=== PATIENT | male | born 1995 | race Caucasian/White ===

== ENCOUNTER 2020-06-05 14:28 | Emergency (ER) | payer OTHER, SELFPAY ==
--- NOTE | ~2020-06-05 | XR_ITS ---
EXAMINATION: XR tibia fibula LT 2V DATE: 06/05/2020 14:49 INDICATION: Anterior and lateral pain at the mid left lower leg post blunt trauma TECHNIQUE: Anteroposterior and lateral views of the left tibia and fibula were obtained. COMPARISON: None. FINDINGS: Alignment is normal. No fracture. Joint spaces are normal. Soft tissue swelling with subcutaneous clare ma along the anterior and lateral aspect of the mid left calf. No left knee or ankle joint effusion. IMPRESSION: 1. No osseous abnormality. Reviewed, dictated and finalized at location A. IMPRESSION: 1. No osseous abnormality.
[2020-06-05 14:36] VITALS: BP 145/72; PULSE 100; RESP 18; TEMP 38.1; O2SAT 100
--- NOTE | 2020-06-05 14:43 | ED.LOWEXIN ---
HPI - Extremity Injury (Lower) General Chief Complaint: Extremity Injury, Lower Stated Complaint: left leg injury Time Seen by Provider: 06/05/20 14:43 Source: patient and RN notes reviewed Mode of arrival: ambulatory Limitations: no limitations History of Present Illness HPI Narrative: 24-year-old male presents to the [facility] with complaints of left anterior lower leg pain after getting hit in the leg with a lift gate from a scissor lift just prior to arrival. Swelling, bruising and abrasion noted. Is walking favoring the left leg. No bleeding noted. States his last tetanus was a couple years ago he believes 2019 when he cut his finger. Related Data Home Medications Medication Instructions Recorded Confirmed No Home Medications 06/05/20 06/05/20 Allergies Allergy/AdvReac Type Severity Reaction Status Date / Time METOCLOPRAMIDE HCL Allergy Unknown DYSTONIC Uncoded 06/05/20 14:42 POSTURING PROCHLORPERAZINE EDISYLATE Allergy Unknown DYSTONIC Uncoded 06/05/20 14:42 POSTURING PROCHLORPERAZINE MALEATE Allergy Unknown DYSTONIC Uncoded 06/05/20 14:42 POSTURING Review of Systems Review of Systems: Narrative: CONSTITUTIONAL: Denies fever, chills, or sweats. CARDIOVASCULAR: Denies chest pain, palpitations, or edema. RESPIRATORY: Denies cough or dyspnea. SKIN: Bruising, swelling and abrasion left anterior lower leg. MUSCULOSKELETAL: Denies back pain, joint pain, or myalgia. NEUROLOGIC: Denies headache, numbness, or weakness. PSYCHIATRIC: Denies anxiety or depression. All other systems reviewed are negative, except as documented in HPI. PMFSH Surgical History Surgical History (Updated 06/07/20 @ 09:36 by Lola Montejo) H/O brain surgery Social History Social History Gender identity (if verbalized by the patient): Male Exam Narrative: Exam Narrative: GENERAL: This is a well-nourished, well-developed patient, in no apparent distress. HEAD: normocephalic, atraumatic. CARDIOVASCULAR: Regular rate and rhythm without murmurs, gallops, or rubs. RESPIRATORY: Clear to auscultation. Breath sounds equal bilaterally. No wheezes, rales, or rhonchi. GASTROINTESTINAL: Abdomen soft, non-tender, nondistended. Bowel sounds are active. No hepato-splenomegaly, or palpable masses. No guarding. SKIN: warm, Dry. Abrasion measuring 13 x 4 cm noted. Swelling and bruising in the same area noted, tender to palpation. Full range of motion of ankle. Sensation intact distal to injury. No edema noted. Positive pedal pulse. NEURO: awake, alert, and oriented to person, place and time. There were no obvious focal neurologic abnormalities. EXTREMITIES: No joint tenderness, effusion, or edema noted. No calf tenderness. Negative Homans sign bilaterally. BACK: Nontender without deformity. Extrem: Upper/lower leg/hip images: 1. Patient, swelling, abrasion Course Vital Signs Vital signs: Vital Signs Temperature 100.6 F H 06/05/20 14:36 Pulse Rate 100 06/05/20 14:36 Respiratory Rate 18 06/05/20 14:36 Blood Pressure 145/72 H 06/05/20 14:36 Pulse Oximetry 100 06/05/20 14:36 Temperature 100.6 F H 06/05/20 14:36 Pulse Rate 100 06/05/20 14:36 Respiratory Rate 18 06/05/20 14:36 Blood Pressure 145/72 H 06/05/20 14:36 Pulse Oximetry 100 06/05/20 14:36 Reviewed MDM - Extremity Injury (Lower) MDM Narrative Medical decision making narrative: Discharge instructions reviewed with patient, as well as provided in writing per nursing staff. The instructions also include specific and strict return/GO TO THE ER as well as f/u information. All questions have been answered, and the patient deny any further questions with discharge and discharge plan. Differential Diagnosis Differential diagnosis: Likely other (Fracture tib-fib, leg contusion, leg abrasion,) Imaging Data Radiologist's impression: Impressions Tibia/Fibula X-Ray 06/05/20 14:55 IMPRE
--- NOTE | 2020-06-05 14:53 | PC.NURSE ---
PT DECLINED ICE FOR COMFORT AND WHEELCHAIR TO RADIOLOGY
== END 2020-06-05 15:11 | disposition home or self-care (01) ==
PROVIDERS: Emergency Provider Nurse Practitioner; PCP Internal Medicine
DX: S80.12XA Contusion of left lower leg, initial encounter (principal); W20.8XXA Other cause of strike by thrown, projected or falling object, initial encounter
CPT/HCPCS: 73590; 99213; G0463

== ENCOUNTER 2020-06-25 18:55 | Emergency (ER) | payer OTHER, SELFPAY ==
--- NOTE | 2020-06-25 19:00 | ED.LOWEXIN ---
HPI - Extremity Injury (Lower) General Chief Complaint: Extremity Injury, Lower Stated Complaint: can't feel lump on left leg Time Seen by Provider: 06/25/20 19:00 Source: patient and RN notes reviewed History of Present Illness HPI Narrative: Patient is a 24-year-old male who presents the urgent care with complaints of a lump to the left lower leg. Patient was seen on 05 June after an incident at work, which occurred on June 04 at [employer]. Patient states that there is a defect in their metal gate and it came back swinging on his left lower leg. Patient states that it initially did cause him pain however he very rarely has any pain and only when he is on his feet for long periods of time. Patient states that his workplace was making him come get it checked out because he told him the lump was a little numb . Patient states that he is aware that the previous provider did tell him it would take some time to heal and the x-rays were normal . Patient states that he does use ibuprofen as needed but very rarely. Currently denies of any acute complaints or pain. States that he only came because his boss made him . Denies of any new injury. Patient aware of the plan of care. Some parts of this dictation were generated by voice recognition software and may contain typographical and/or grammatical inaccuracies. Related Data Home Medications Medication Instructions Recorded Confirmed budesonide-formoterol [Symbicort] 2 puff INHALATION Q12H 06/25/20 06/25/20 Allergies Allergy/AdvReac Type Severity Reaction Status Date / Time METOCLOPRAMIDE HCL Allergy Unknown DYSTONIC Uncoded 06/25/20 19:08 POSTURING PROCHLORPERAZINE EDISYLATE Allergy Unknown DYSTONIC Uncoded 06/25/20 19:08 POSTURING PROCHLORPERAZINE MALEATE Allergy Unknown DYSTONIC Uncoded 06/25/20 19:08 POSTURING Review of Systems Review of Systems: Narrative: CONSTITUTIONAL: Denies fever, chills, or sweats. EYES: Denies visual changes, redness, or discharge. ENT: Denies rhinorrhea, congestion, sore throat, or otalgia. CARDIOVASCULAR: Denies chest pain, palpitations, or edema. RESPIRATORY: Denies cough or dyspnea. GASTROINTESTINAL: Denies abdominal pain, nausea, vomiting, or diarrhea. GENITOURINARY: Denies dysuria or hematuria. SKIN: Denies rash or itching. MUSCULOSKELETAL: Reports of a contusion to the left lower leg NEUROLOGIC: Denies headache, numbness, or weakness. All other systems reviewed are negative, except as documented in HPI. [facility] Surgical History Surgical History (Updated 06/07/20 @ 09:36 by Lola Montejo) H/O brain surgery Social History Social History Gender identity (if verbalized by the patient): Male Comments At the time of my signature, I reviewed and agree with the nursing past medical, surgical, social, and family history. There is no relevant family history pertinent to the patient complaint. Exam Narrative: Exam Narrative: GENERAL: This is a well-nourished, well-developed patient, in no apparent distress. HEAD: normocephalic, atraumatic. EYES: PERRL. Sclera clear/white. Vision is grossly intact. EARS: External ears normal NOSE: External nose normal with no obvious nasal discharge, nares without redness, no rhinorrhea. THROAT: Mucous membranes moist NECK: Neck supple CARDIOVASCULAR: Regular rate and rhythm without murmurs, gallops, or rubs. RESPIRATORY: Clear to auscultation. Breath sounds equal bilaterally. No wheezes, rales, or rhonchi. SKIN: warm, intact with no suspicious lesions or rash, good texture and turgor. NEURO: awake, alert, and oriented to person, place and time. There were no obvious focal neurologic abnormalities. EXTREMITIES: 4 x 4 centimeter nonerythemic nontender hematoma noted to the left lower anterior leg. Negative Homans' sign. Positive strong left pedal pulse with capillary refill less than 2 seconds. Range of motion to left lower extremity within
[2020-06-25 19:02] VITALS: BP 148/65; PULSE 88; RESP 16; TEMP 36.9; O2SAT 99
== END 2020-06-25 19:14 | disposition home or self-care (01) ==
PROVIDERS: Emergency Provider Nurse Practitioner Family
DX: S80.12XD Contusion of left lower leg, subsequent encounter (principal); W22.8XXD Striking against or struck by other objects, subsequent encounter; J45.909 Unspecified asthma, uncomplicated
CPT/HCPCS: 99211; G0463

== ENCOUNTER 2020-10-23 17:15 | Emergency (ER) | payer OTHER, SELFPAY ==
[2020-10-23 17:21] VITALS: BP 142/70; PULSE 101; RESP 16; TEMP 37.4; O2SAT 99
--- NOTE | 2020-10-23 17:22 | ED.NAVMDI ---
HPI - Nausea/Vomiting/Diarrhea General Chief complaint: Nausea/Vomiting/Diarrhea Stated complaint: Headache, vomitting, body aches Time Seen by Provider: 10/23/20 17:22 Source: patient and RN notes reviewed History of Present Illness HPI Narrative: Patient is a 25-year-old male who presents the urgent care with complaints of vomiting, headache and body aches. Patient states he woke up with the symptoms this morning at 4 AM and they have since subsided. Patient states he took Tylenol for the headache and states that he also had a low-grade fever of 100.2 Fahrenheit. Patient denies of any known contact with Covid and states that he has been vaccinated. Patient states his rapid Covid test at work this morning was negative and he is following up at [facility] for a PCR on Monday. Patient currently denies of any nausea, diarrhea or abdominal pain. No other acute complaints. No acute distress noted. Patient aware of the plan of care. Some parts of this dictation were generated by voice recognition software and may contain typographical and/or grammatical inaccuracies. Related Data Home Medications Medication Instructions Recorded Confirmed budesonide-formoterol [Symbicort] 2 puff INHALATION Q12H 06/25/20 06/25/20 Allergies Allergy/AdvReac Type Severity Reaction Status Date / Time METOCLOPRAMIDE HCL Allergy Unknown DYSTONIC Uncoded 06/25/20 19:08 POSTURING PROCHLORPERAZINE EDISYLATE Allergy Unknown DYSTONIC Uncoded 06/25/20 19:08 POSTURING PROCHLORPERAZINE MALEATE Allergy Unknown DYSTONIC Uncoded 06/25/20 19:08 POSTURING Review of Systems Review of Systems: CONSTITUTIONAL: Reports of resolved fever EYES: Denies visual changes, redness, or discharge. ENT: Denies rhinorrhea, congestion, sore throat, or otalgia. CARDIOVASCULAR: Denies chest pain, palpitations, or edema. RESPIRATORY: Denies cough or dyspnea. GASTROINTESTINAL: Reports of resolved vomiting without nausea or abdominal pain GENITOURINARY: Denies dysuria or hematuria. SKIN: Denies rash or itching. MUSCULOSKELETAL: Denies back pain, joint pain, or myalgia. NEUROLOGIC: Reports a resolved headache All other systems reviewed are negative, except as documented in HPI. [facility] Surgical History Surgical History (Updated 06/07/20 @ 09:36 by Lola Montejo) H/O brain surgery Social History Social History Gender identity (if verbalized by the patient): Male Comments At the time of my signature, I reviewed and agree with the nursing past medical, surgical, social, and family history. There is no relevant family history pertinent to the patient complaint. Exam Narrative: GENERAL: This is a well-nourished, well-developed patient, in no apparent distress. HEAD: normocephalic, atraumatic. EYES: PERRL. Sclera clear/white. Vision is grossly intact. EARS: External ears normal, auditory canals clear and without drainage, TMs normal without perforation. Hearing grossly intact. NOSE: External nose normal with no obvious nasal discharge, nares without redness, no rhinorrhea. THROAT: Mucous membranes moist, mild erythema noted posterior pharynx with moderate postnasal drainage. NECK: Neck supple CARDIOVASCULAR: Regular rate and rhythm without murmurs, gallops, or rubs. RESPIRATORY: Clear to auscultation. Breath sounds equal bilaterally. No wheezes, rales, or rhonchi. GASTROINTESTINAL: Abdomen soft, non-tender, nondistended. Bowel sounds are active. No guarding. SKIN: warm, intact with no suspicious lesions or rash, good texture and turgor. NEURO: awake, alert, and oriented to person, place and time. There were no obvious focal neurologic abnormalities. EXTREMITIES: No clubbing, cyanosis, or edema. Course Vital Signs Vital signs: Vital Signs Temperature 99.3 F 10/23/20 17:21 Pulse Rate 101 H 10/23/20 17:21 Respiratory Rate 16 10/23/20 17:21 Blood Pressure 142/70 H 10/23/20 17:21 Pulse Oximetry 99 09
== END 2020-10-23 17:49 | disposition home or self-care (01) ==
PROVIDERS: Emergency Provider Nurse Practitioner Family; PCP Internal Medicine
DX: R11.10 Vomiting, unspecified (principal); R51.9 Headache, unspecified; J45.909 Unspecified asthma, uncomplicated
CPT/HCPCS: 87081; 87880; 99213; G0463

== ENCOUNTER 2020-12-15 12:04 | Emergency (ER) | payer OTHER, SELFPAY ==
[2020-12-15 12:10] VITALS: BP 140/70; PULSE 92; RESP 20; TEMP 36.9; O2SAT 100
--- NOTE | 2020-12-15 12:45 | ED.SKABFB ---
HPI - Skin/Abscess/Foreign Bdy General Chief complaint: Skin/Abscess/Foreign Body Stated complaint: Rash Source: patient and RN notes reviewed Mode of arrival: ambulatory Limitations: no limitations History of Present Illness HPI narrative: Mitchel is a 25-year-old male patient who ambulated into the [facility]. Zahra states he has a 1 day history of reddened erythemic rash on his neck and upper chest. Patient states he has no new exposures to any new soap, shaving cream, or anything else. Patient states the rash is itchy . Patient denies any other symptoms. Patient denies any treatment prior to arrival Related Data Home Medications Medication Instructions Recorded Confirmed budesonide-formoterol [Symbicort] 2 puff INHALATION Q12H 06/25/20 12/15/20 Allergies Allergy/AdvReac Type Severity Reaction Status Date / Time METOCLOPRAMIDE HCL Allergy Unknown DYSTONIC Uncoded 12/15/20 12:27 POSTURING PROCHLORPERAZINE EDISYLATE Allergy Unknown DYSTONIC Uncoded 12/15/20 12:27 POSTURING PROCHLORPERAZINE MALEATE Allergy Unknown DYSTONIC Uncoded 12/15/20 12:27 POSTURING Review of Systems Review of Systems: CONSTITUTIONAL: Denies body aches, fever, chills, or sweats. EYES: Denies visual changes, redness, or discharge. ENT: Denies rhinorrhea, congestion, sore throat, or otalgia. CARDIOVASCULAR: Denies chest pain, palpitations, or edema. RESPIRATORY: Denies cough or dyspnea. GASTROINTESTINAL: Denies abdominal pain, nausea, vomiting, or diarrhea. GENITOURINARY: Denies dysuria or hematuria. SKIN: reddened itchy rash to neck and upper chest. MUSCULOSKELETAL: Denies back pain, joint pain, or myalgia. NEUROLOGIC: Denies headache, numbness, tingling, or weakness. PSYCH: Denies depression or anxiety. All systems reviewed & are unremarkable except as noted in HPI and below PMFSH Surgical History Surgical History H/O brain surgery Social History Social History Gender identity (if verbalized by the patient): Male Comments At time of signature, I have reviewed and agree with nursing past medical, surgical, social and family history unless otherwise noted. Please see nursing chart for further information. There is no relevant family history pertinent to the presenting complaint Exam Narrative: GENERAL: Well-appearing, well-nourished, and in no acute distress. HEAD: Normocephalic, atraumatic. EYES: EOMI. No redness or drainage. Conjunctivae normal. ENT: Mucous membranes pink and moist. Nares clear. No rhinorrhea. NECK: Normal AROM. Supple. MUSCULOSKELETAL: No bony tenderness. EXTREMITIES: Normal range of motion. No edema. SKIN: Warm, dry, Capillary refill normal. Normal skin turgor , erythemic macular rash bilateral anterior neck and middle upper chest. NEURO: No focal deficits. Alert and oriented x3. Gait steady. PSYCH: Normal affect. No signs of depression or anxiety. Course Vital Signs Vital signs: Vital Signs Temperature 36.9 C 12/15/20 12:10 Pulse Rate 92 12/15/20 12:10 Respiratory Rate 20 12/15/20 12:10 Blood Pressure 140/70 12/15/20 12:10 Pulse Oximetry 100 12/15/20 12:10 Temperature 36.9 C 12/15/20 12:10 Pulse Rate 92 12/15/20 12:10 Respiratory Rate 20 12/15/20 12:10 Blood Pressure 140/70 12/15/20 12:10 Pulse Oximetry 100 12/15/20 12:10 MDM - Skin/Abscess/Foreign Bdy MDM Narrative Medical decision making narrative: Contact dermatitis. Patient has new onset rash , patient c/o ithciness . Used Zyrtec 10 mg tablet daily. Take Medrol dose pack as prescribed. Follow-up with your primary care physician in 3 to 5 days for continued symptoms. Differential Diagnosis Differential diagnosis: Likely abscess of skin or subcutaneous tissue, herpes zoster, allergic reaction to drug and contact dermatitis Medical Records Attestation: I reviewed the art
== END 2020-12-15 13:00 | disposition home or self-care (01) ==
PROVIDERS: Emergency Provider Nurse Practitioner Family
DX: L23.9 Allergic contact dermatitis, unspecified cause (principal); J45.909 Unspecified asthma, uncomplicated
CPT/HCPCS: 99213; G0463

== ENCOUNTER 2021-09-03 16:27 | Emergency (ER) | payer OTHER, SELFPAY ==
[2021-09-03 16:32] VITALS: BP 147/64; PULSE 110; RESP 20; TEMP 36.6; O2SAT 100
--- NOTE | 2021-09-03 16:33 | ED.URI ---
HPI - URI/Sore Throat General Chief Complaint: Upper Respiratory Infection Stated Complaint: Vomiting/Headache/Sore Throat Time Seen by Provider: 09/03/21 16:33 Source: patient and RN notes reviewed History of Present Illness HPI Narrative: Patient is a 25-year-old male who presents the urgent care with complaints of COVID symptoms. Patient states that he was exposed to a couple coworkers with COVID at work and this is now day 3 of symptoms. Patient states he has had vomiting, sore throat, headache, chills and sweats. Patient has been taking ibuprofen. No other acute complaints. No acute distress noted. Patient aware of plan of care. Some parts of this dictation were generated by voice recognition software and may contain typographical and/or grammatical inaccuracies. Related Data Home Medications Medication Instructions Recorded Confirmed No Home Medications 09/03/21 09/03/21 Allergies Allergy/AdvReac Type Severity Reaction Status Date / Time metoclopramide [From Reglan] Allergy Severe Swelling Verified 09/03/21 16:59 of Lip/Tongue/Throat prochlorperazine Allergy Severe Swelling Verified 09/03/21 16:58 [From Compazine] of Lip/Tongue/Throat Review of Systems Review of Systems: CONSTITUTIONAL: Reports of chills and sweats EYES: Denies visual changes, redness, or discharge. ENT: Denies rhinorrhea, congestion, otalgia. Reports of sore throat CARDIOVASCULAR: Denies chest pain, palpitations, or edema. RESPIRATORY: Denies cough or dyspnea. GASTROINTESTINAL: Reports of vomiting GENITOURINARY: Denies dysuria or hematuria. SKIN: Denies rash or itching. MUSCULOSKELETAL: Denies back pain, joint pain, or myalgia. NEUROLOGIC: Reports of headache All other systems reviewed are negative, except as documented in HPI. [facility] Surgical History Surgical History H/O brain surgery Social History Social History Gender identity (if verbalized by the patient): Male Comments At the time of my signature, I reviewed and agree with the nursing past medical, surgical, social, and family history. There is no relevant family history pertinent to the patient complaint. Exam Narrative: GENERAL: This is a well-nourished, well-developed patient, in no apparent distress. HEAD: normocephalic, atraumatic. EYES: PERRL. Sclera clear/white. Vision is grossly intact. EARS: External ears normal, auditory canals clear and without drainage, TMs normal without perforation. Hearing grossly intact. NOSE: External nose normal with no obvious nasal discharge, nares without redness. Yellow rhinorrhea THROAT: Mucous membranes moist. Mild erythema noted posterior pharynx with copious amounts of postnasal drainage without exudate or ulceration NECK: Neck supple, non-tender without lymphadenopathy CARDIOVASCULAR: Regular rate and rhythm without murmurs, gallops, or rubs. RESPIRATORY: Clear to auscultation. Breath sounds equal bilaterally. No wheezes, rales, or rhonchi. SKIN: warm, intact with no suspicious lesions or rash, good texture and turgor. NEURO: awake, alert, and oriented to person, place and time. There were no obvious focal neurologic abnormalities. EXTREMITIES: No clubbing, cyanosis, or edema. Course Course Level of Care: Express Care Visit Vital Signs Vital signs: Vital Signs Temperature 98 F 09/03/21 16:32 Pulse Rate 110 H 09/03/21 16:32 Respiratory Rate 20 09/03/21 16:32 Blood Pressure 147/64 H 09/03/21 16:32 Pulse Oximetry 100 09/03/21 16:32 Oxygen Delivery Room Air 09/03/21 16:32 Temperature 98 F 09/03/21 16:32 Pulse Rate 110 H 09/03/21 16:32 Respiratory Rate 20 09/03/21 16:32 Blood Pressure 147/64 H 09/03/21 16:32 Pulse Oximetry 100 09/03/21 16:32 Oxygen Delivery Room Air 09/03/21 16:32 Reviewed-patient is informed that they may have pre-hypertension or hypertensio
== END 2021-09-03 17:12 | disposition home or self-care (01) ==
PROVIDERS: Emergency Provider Nurse Practitioner Family; PCP Internal Medicine
DX: B34.9 Viral infection, unspecified (principal); Z20.822 Contact with and (suspected) exposure to COVID-19; J45.909 Unspecified asthma, uncomplicated
CPT/HCPCS: 87081; 87426; 87880; 99213; C9803; G0463

== ENCOUNTER 2022-07-02 17:06 | Emergency (ER) | payer OTHER, SELFPAY ==
[2022-07-02 17:10] VITALS: BP 131/74; PULSE 106; RESP 20; TEMP 36.7; O2SAT 98
--- NOTE | 2022-07-02 17:14 | ED.URI ---
HPI - URI/Sore Throat General Chief Complaint: Upper Respiratory Infection Stated Complaint: cold Time Seen by Provider: 07/02/22 17:14 History of Present Illness HPI Narrative: Patient presents with a 3 day history of nasal congestion cough nausea and vomiting and body aches. No shortness of breath and no chest pain. 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 Related Data Home Medications Medication Instructions Recorded Confirmed No Home Medications 09/03/21 09/03/21 Allergies Allergy/AdvReac Type Severity Reaction Status Date / Time metoclopramide [From Reglan] Allergy Severe Swelling Verified 09/03/21 16:59 of Lip/Tongue/Throat prochlorperazine Allergy Severe Swelling Verified 09/03/21 16:58 [From Compazine] of Lip/Tongue/Throat Review of Systems Review of Systems: CONSTITUTIONAL: Denies chills, or sweats. Reports fever and generalized body aches EYES: Denies visual changes, redness, or discharge. ENT: Denies otalgia. Reports nasal congestion runny nose and sore throat CARDIOVASCULAR: Denies chest pain, palpitations, or edema. RESPIRATORY: Denies dyspnea. Reports occasional cough GASTROINTESTINAL: Denies abdominal pain, nausea, vomiting, or diarrhea. GENITOURINARY: Denies dysuria or hematuria. SKIN: Denies rash or itching. MUSCULOSKELETAL: Denies back pain, joint pain, or myalgia. Reports generalized body aches NEUROLOGIC: Denies headache, numbness, or weakness. PSYCHIATRIC: Denies anxiety or depression. [facility] Surgical History Surgical History H/O brain surgery Social History Social History Gender identity (if verbalized by the patient): Male Comments At time of signature, agree with nursing past medical, surgical, social and family history. There is no relevant family history pertinent to the presenting complaint Exam Narrative: The patient is a well-developed, well-nourished in no acute distress. SKIN: Skin is warm and dry without erythema, swelling or exudate. There is good turgor. No tenting. HEAD: Atraumatic. Normocephalic. No temporal or scalp tenderness. EYES: Moist and bright. Sclera and conjunctivae normal. No discharge. PERRLA. Extraocular motions intact. Gross visual acuity intact. EARS: Pinna is normal shape and contour. Clear external auditory canals. TM pearly cortés with good cone of light, no erythema or suppuration. Bilateral cerumen noted no gross hearing deficit. NOSE: pink, moist mucosa with good air movement. Clear rhinorrhea without nasal flaring. Septum midline. Mouth: moist mucous membranes. THROAT; mild erythema noted to posterior oropharynx with moderate postnasal drainage. Without exudate or ulceration.. Uvula midline. Normal movement of soft palate. NECK: Supple and nontender with full range of motion without discomfort. No meningeal signs. LUNGS: Equal and bilateral breath sounds without wheezes, rales or rhonchi. CHEST: The chest wall is without retractions or use of accessory muscles. HEART: Has a regular rate and rhythm without murmur, gallops, click or rub. ABDOMEN: Soft, nontender with positive active bowel sounds. No rebound tenderness. EXTREMITIES: Without cyanosis, clubbing or edema. Equal 2+ distal pulses and 2 second capillary refill noted. NEUROLOGIC: alert, active, . The patient moves all extremities with normal muscle strength. Normal muscle tone is noted. Normal coordination is noted. NO focal neurological findings noted. Course Course Level of Care: Express Care Visit Discharge Plan Discharge Clinical Impression: Close exposure to COVID-19 virus, Upper respiratory infection, viral Patient Disposition: Home, Self-Care Condition: Stable Instructions: Viral Syndrome (ED) Additional Instructions:
== END 2022-07-02 17:44 | disposition home or self-care (01) ==
PROVIDERS: Emergency Provider Nurse Practitioner Family; PCP Internal Medicine
DX: J06.9 Acute upper respiratory infection, unspecified (principal); Z20.822 Contact with and (suspected) exposure to COVID-19
CPT/HCPCS: 87426; 87804; 99213; C9803; G0463

== ENCOUNTER 2022-12-07 09:12 | Emergency (ER) | payer OTHER, SELFPAY ==
--- NOTE | ~2022-12-07 | XR_ITS ---
EXAMINATION: XR ankle LT min 3V DATE: 12/07/2022 09:25 INDICATION: Inversion injury with lateral malleolar pain. TECHNIQUE: Anteroposterior, oblique, mortise, and lateral views of the left ankle were obtained. COMPARISON: None. FINDINGS: Alignment is normal. No fracture. Joint spaces are well maintained. Moderate-sized ankle joint effus ion. The soft tissues are otherwise unremarkable. IMPRESSION: 1. Moderate-sized left ankle joint effusion. No osseous abnormality. Reviewed, dictated and finalized at location A.
--- NOTE | 2022-12-07 09:16 | ED.LOWEXIN ---
HPI - Extremity Injury (Lower) General Stated Complaint: Left ankle injury Time Seen by Provider: 12/07/22 09:40 Source: patient and RN notes reviewed Mode of arrival: ambulatory Limitations: no limitations History of Present Illness HPI Narrative: 27-year-old male presents concern for left ankle pain. Reports last night he fell out of a [place] and hit his left ankle. He reports lateral pain, worsening pain with flexion and extension. He denies decreased sensation, strength, range of motion. MD complaint: ankle injury Related Data Home Medications Medication Instructions Recorded Confirmed escitalopram oxalate 10 mg tablet 10 mg PO DAILY 12/07/22 12/07/22 Allergies Allergy/AdvReac Type Severity Reaction Status Date / Time metoclopramide [From Reglan] Allergy Severe Swelling Verified 12/07/22 09:38 of Lip/Tongue/Throat prochlorperazine Allergy Severe Swelling Verified 12/07/22 09:38 [From Compazine] of Lip/Tongue/Throat Review of Systems Review of Systems: CONSTITUTIONAL: Denies malaise, chills, sweats, or fever. SKIN: Denies rash or itching, open skin, laceration, abrasion, redness, warmth MUSCULOSKELETAL: Reports left ankle pain and swelling NEUROLOGIC: Denies numbness, weakness All systems reviewed & are unremarkable except as noted in HPI and below PMFSH Surgical History Surgical History H/O brain surgery Social History Social History Gender identity (if verbalized by the patient): Male Comments At time of signature, agree with nursing past medical, surgical, social and family history. There is no relevant family history pertinent to the presenting complaint Exam Narrative: GENERAL: Well-appearing, well-nourished, and in no acute distress. HEAD: Normocephalic, atraumatic. EYES: PERRLA, conjunctivae clear NECK: Supple. CHEST: Speaks in full sentences. No respiratory distress. HEART: Regular rate and rhythm. Normal and equal peripheral pulses. EXTREMITIES: Left ankle has normal strength and sensation, gross normal range of motion. Mom edema, no ecchymosis. Normal sensation with sensitivity to light touch and pain. Lateral tenderness. No open wounds, no skin tenting, no devitalized tissue or atrophy, no trophic changes, no obvious deformity, alignment normal, nearby joints and structures intact. Distal pulses palpable and equal bilaterally, skin warm, dry, pink. Capillary refill less than 3 seconds. SKIN: Warm, dry, no rash. NEURO: Alert and oriented x3. PSYCH: Normal mood and affect Course Course Emergency Course: Patient is aware of diagnosis, understands and agrees to treatment plan. Anticipatory guidance given. Patient agrees to follow-up as directed and is aware of reasons to seek care at the emergency department. Portions of this record may have been created with voice recognition software Level of Care: Express Care Visit Vital Signs Vital signs: Reviewed. MDM - Extremity Injury (Lower) MDM Narrative Medical decision making narrative: Patients injury and pain is consistent with musculoskeletal etiology. No signs of neurological or vascular compromise on exam. Compartments and tissues are soft without signs of compartment syndrome. Pain is felt appropriate for further evaluation on an outpatient basis. Critical Care Time Critical Care Time Critical Care Time: No Discharge Plan Discharge Clinical Impression: Joint effusion Patient Disposition: Home, Self-Care Condition: Stable Instructions: Swollen Ankle Joint (ED) Additional Instructions: Avoid activities that cause pain until the pain subsides. Ice to the area 20-30 minutes 4-6 times a day Elevate above heart Elastic wrap or orthopedic splint as directed for comfort for the next 5-7 days Tylenol for lesser pain Ibuprofen regularly for the next 2-3 days for the inflammation
[2022-12-07 09:17] VITALS: BP 127/60; PULSE 106; RESP 18; TEMP 36.6; O2SAT 97
--- NOTE | 2022-12-07 09:47 | PC.NURSE ---
PT DECLINED ICE FOR COMFORT
== END 2022-12-07 09:50 | disposition home or self-care (01) ==
PROVIDERS: Emergency Provider Nurse Practitioner; PCP Internal Medicine
DX: M25.472 Effusion, left ankle (principal)
CPT/HCPCS: 73610; 99213; G0463

== ENCOUNTER 2023-05-28 09:36 | Emergency (ER) | payer OTHER, SELFPAY ==
[2023-05-28 09:42] VITALS: BP 142/75; PULSE 110; RESP 18; TEMP 36.8; O2SAT 99
--- NOTE | 2023-05-28 10:01 | ED.URI ---
HPI - URI/Sore Throat General Chief Complaint: Upper Respiratory Infection Stated Complaint: Sore Throat/Body Ache/Congestion History of Present Illness HPI Narrative: Patient presents with nasal congestion cough and sore throat.. Patient denies any trouble swallowing no drooling no shortness of breath no chest pain. Patient states he missed work and needs a note for work. Related Data Home Medications Medication Instructions Recorded Confirmed escitalopram oxalate 10 mg tablet 10 mg PO DAILY 12/07/22 12/07/22 Allergies Allergy/AdvReac Type Severity Reaction Status Date / Time metoclopramide [From Reglan] Allergy Severe Swelling Verified 12/07/22 09:38 of Lip/Tongue/Throat prochlorperazine Allergy Severe Swelling Verified 12/07/22 09:38 [From Compazine] of Lip/Tongue/Throat Review of Systems Review of Systems: CONSTITUTIONAL: Denies chills, or sweats. Reports fever and generalized body aches EYES: Denies visual changes, redness, or discharge. ENT: Denies otalgia. Reports nasal congestion runny nose and sore throat CARDIOVASCULAR: Denies chest pain, palpitations, or edema. RESPIRATORY: Denies dyspnea. Reports occasional cough GASTROINTESTINAL: Denies abdominal pain, nausea, vomiting, or diarrhea. GENITOURINARY: Denies dysuria or hematuria. SKIN: Denies rash or itching. MUSCULOSKELETAL: Denies back pain, joint pain, or myalgia. Reports generalized body aches NEUROLOGIC: Denies headache, numbness, or weakness. PSYCHIATRIC: Denies anxiety or depression. [facility] Surgical History Surgical History H/O brain surgery Social History Social History Gender identity (if verbalized by the patient): Male Comments At time of signature, agree with nursing past medical, surgical, social and family history. There is no relevant family history pertinent to the presenting complaint Exam Narrative: The patient is a well-developed, well-nourished in no acute distress. SKIN: Skin is warm and dry without erythema, swelling or exudate. There is good turgor. No tenting. HEAD: Atraumatic. Normocephalic. No temporal or scalp tenderness. EYES: Moist and bright. Sclera and conjunctivae normal. No discharge. PERRLA. Extraocular motions intact. Gross visual acuity intact. EARS: Pinna is normal shape and contour. Clear external auditory canals. TM pearly cortés with good cone of light, no erythema or suppuration. Bilateral cerumen noted no gross hearing deficit. NOSE: pink, moist mucosa with good air movement. Clear rhinorrhea without nasal flaring. Septum midline. Mouth: moist mucous membranes. THROAT; mild erythema noted to posterior oropharynx with moderate postnasal drainage. Without exudate or ulceration.. Uvula midline. Normal movement of soft palate. NECK: Supple and nontender with full range of motion without discomfort. No meningeal signs. LUNGS: Equal and bilateral breath sounds without wheezes, rales or rhonchi. CHEST: The chest wall is without retractions or use of accessory muscles. HEART: Has a regular rate and rhythm without murmur, gallops, click or rub. ABDOMEN: Soft, nontender with positive active bowel sounds. No rebound tenderness. EXTREMITIES: Without cyanosis, clubbing or edema. Equal 2+ distal pulses and 2 second capillary refill noted. NEUROLOGIC: alert, active, . The patient moves all extremities with normal muscle strength. Normal muscle tone is noted. Normal coordination is noted. NO focal neurological findings noted. Course Course Level of Care: Express Care Visit Vital Signs Vital signs: Vital Signs Temperature 36.8 C 05/28/23 09:42 Pulse Rate 110 H 05/28/23 09:42 Respiratory Rate 18 05/28/23 09:42 Blood Pressure 142/75 H 05/28/23 09:42 Pulse Oximetry 99 05/28/23 09:42 Oxygen Delivery Room Air 05/28/23 09:42 Temperature 36.8 C 05/28/23 09:42 Pulse
== END 2023-05-28 10:21 | disposition home or self-care (01) ==
PROVIDERS: Emergency Provider Nurse Practitioner Family; PCP Internal Medicine
DX: J02.9 Acute pharyngitis, unspecified (principal); J06.9 Acute upper respiratory infection, unspecified
CPT/HCPCS: 87081; 87880; 99213; G0463